=== PATIENT | male | born 1985 | race Caucasian/White ===

== ENCOUNTER 2018-04-02 16:09 | Emergency (ER) | payer BC ==
[2018-04-02] MEDS ORDERED: Lactated Ringers 1,000 ML IV ONE (16:26)
--- NOTE | 2018-04-02 16:44 | EDM.PDOC ---
ED HPI GENERAL MEDICAL PROBLEM - General Chief Complaint: Lower Extremity Injury/Pain Stated Complaint: Left leg spasms Time Seen by Provider: 04/02/18 16:37 Source of Information: Reports: Patient History Limitations: Reports: No Limitations - History of Present Illness INITIAL COMMENTS - FREE TEXT/NARRATIVE: Salty is a 32 year old male who presents to the ED with c/o right hip and leg pain. He reports that he has had pain from 7 am until 3:30 pm today. He initially described pain to nursing staff as a constant muscle spasm. However upon further discussion, pain originates from the hip and goes down to his knee at times. Reports the pain starts in his right hip and radiates down to his knee. He reports he was at work and had to leave work early due to the pain. He reports he has not tried anything for the pain. Has never had this type of pain. Denies any injury. Is ambulating without difficulty. Onset: Today Onset Date: 04/02/18 Onset Time: 07:30 Duration: Intermittent Location: Reports: Lower Extremity, Left Quality: Reports: Ache, Sharp Severity: Moderate Associated Symptoms: Reports: No Other Symptoms Left Upper Leg Pain Score (Numeric/FACES): 5 - Related Data Allergies Allergy/AdvReac Type Severity Reaction Status Date / Time No Known Allergies Allergy Verified 04/02/18 16:14 Home Meds: Home Meds Lisinopril/Hydrochlorothiazide [Lisinopril-Hctz 20-25 mg Tab] 1 tab PO DAILY 05/20 [History] Past Medical History Cardiovascular History: Reports: Hypertension - Past Surgical History Other Endocrine Surgeries/Procedures: pt states he is diabetic but is not on medications for it Social & Family History - Family History Family Medical History: Noncontributory - Tobacco Use Smoking Status *Q: Never Smoker - Caffeine Use Caffeine Use: Reports: None - Recreational Drug Use Recreational Drug Use: No Review of Systems - Review of Systems Review Of Systems: ROS reveals no pertinent complaints other than HPI. ED EXAM, GENERAL - Physical Exam Exam: See Below Exam Limited By: No Limitations General Appearance: Alert, WD/WN, No Apparent Distress Peripheral Pulses: 2+: Posterior Tibial (L), Dorsalis Pedis (L) Extremities: Normal Inspection, Normal Range of Motion, No Pedal Edema, Normal Capillary Refill, Leg Pain (left), Other (tenerness over left greater trochanter ). No: Joint Swelling, Limited Range of Motion, Increased Warmth, Redness Neurological: Alert, Oriented, CN II-XII Intact, Normal Cognition, Normal Gait, Normal Reflexes, No Motor/Sensory Deficits Psychiatric: Normal Affect, Normal Mood Course - Vital Signs Last Recorded V/S: Last Vital Signs Temp 99.1 F 04/02/18 16:09 Pulse 87 04/02/18 16:09 Resp 20 04/02/18 16:09 BP 141/85 H 04/02/18 16:09 Pulse Ox 100 04/02/18 16:09 - Orders/Labs/Meds Labs: Laboratory Tests 04/02/18 04/02/18 Range/Units 16:23 16:23 WBC 6.5 (5.0-10.0) 10^3/uL RBC 5.32 (4.50-6.00) 10^6/uL Hgb 15.6 (14.0-18.0) g/dL Hct 43.4 (40.0-54.0) % MCV 81.6 L (82.0-94.0) fL MCH 29.3 (27.0-32.0) pg MCHC 35.9 (33.0-38.0) g/dL RDW Coeff of Shahana 12.5 (11.0-15.0) % Plt Count 257 (150-400) 10^3/uL Neut % (Auto) 52.1 (35-85) % Lymph % (Auto) 36.9 (10-55) % Kenedy % (Auto) 9.0 (0-16) % Eos % (Auto) 1.7 (0-5) % Baso % (Auto) 0.3 (0-3) % Neut # (Auto) 3.37 (1.80-7.00) 10^3/uL Lymph # (Auto) 2.39 (1.00-4.80) 10^3/uL Kenedy # (Auto) 0.58 (0.00-0.80) 10^3/uL Eos # (Auto) 0.11 (0.00-0.45) 10^3/uL Baso # (Auto) 0.02 10^3/uL ESR 4 (0-15) mm/hr Sodium 140 (136-145) mEq/L Potassium 3.8 (3.5-5.0) mEq/L Chloride 101 (98-106) mEq/L Carbon Dioxide 26 (21-32) mmol/L BUN 25 H (7-18) mg/dL Creatinine 1.3 (0.7-1.3) mg/dL Est Cr Clr Drug Dosing 85.01 mL/min Estimated GFR (MDRD) > 60 (>=60) mL/min Glucose 99 (75-99) mg/dL Calcium 9.4 (8.4-10.1) mg/dL Magnesium 2.0 (1.8-2.4) mg/dL Total Bilirubin 0.6 (0.0-1.0) mg/dL AST 21 (15-37) U/L ALT 48 (12-78) U/L Alkaline Phosphatase 64 (46-116) U/L Creatine Kinase 185 (35-232) U/L C-Reactive Protein 0.3 (0.2-0.8) mg/dL Total Protein 8.4 H (6.4-8.2) g/dL Albumin 4.7 (3.4-5.0) g/dL TSH, Ultra Sensitive 1.88 (0.36-5.60) uIU/mL Meds: Medications Discontinued Medications Generic Name Dose Route Start Last Admin Trade Name Freq PRN Reason Stop Dose Admin Lactated Ringer's 1,000 mls @ 999 mls/hr 04/02/18 16:26 Ringers, Lactated IV 04/02/18 17:26 .BOLUS ONE Ketorolac Tromethamine 30 mg 04/02/18 16:53 04/02/18 16:56 Toradol IM 04/02/18 16:54 30 mg ONETIME ONE Administration - Re-Assessments/Exams Free Text/Narrative Re-Assessment/Exam: 04/02/18 17:04 Labs were ordered and collected prior to my exam. After further discussion with patient, issues seem to be more musculoskeletal related rather than muscle cramping. Given exam findings I do not feel there is indication for imaging at this time. Discussed lab findings with patient. Patient given Toradol. Reports improvement in pain. Departure - Departure Time of Disposition: 17:04 Disposition: Home, Self-Care 01 Condition: Good Clinical Impression: Bursitis of hip Qualifiers: Hip bursitis location: unspecified Laterality: left Qualified Code(s): M70.72 - Other bursitis of hip, left hip - Discharge Information *PRESCRIPTION DRUG MONITORING PROGRAM REVIEWED*: Not Applicable *COPY OF PRESCRIPTION DRUG MONITORING REPORT IN PATIENT BUSTER: Not Applicable Instructions: Hip Bursitis, [id number] Referrals: Ben Plummer MD [Primary Care Provider] - Forms: ED Department Discharge Additional Instructions: 1) Alternate Tylenol and ibuprofen as needed for pain 2) Activity as tolerated 3) Ice or heat to affected area as needed for comfort 4) Avoid repetitive movements of left hip 5) Try stretching left hip 6) Follow up in clinic with PCP if symptoms worsen or do not improve. May need referral to physical therapy if no improvement.
[2018-04-02] MEDS ORDERED: Ketorolac 30 MG/ML SDV IM ONE (16:53)
[2018-04-02 17:02] LABS: CHLORIDE,CL 101 mEq/L (98-106); SODIUM,NA 140 mEq/L (136-145)
== END 2018-04-02 17:13 | disposition home or self-care (01) ==
LOC: CC.ED 16:09
DX: M70.72 Other bursitis of hip, left hip (principal)
CPT/HCPCS: 36415; 80053; 82550; 83735; 84443; 85025; 85651; 86140; 96372; 99283; J1885

== ENCOUNTER 2019-06-02 18:19 | Emergency (ER) | payer BC ==
[~2019-06-02 18:19] MED LIST: Diphtheria,Pertussis(Acell),Tetanus Vaccine 0.5 ML Syringe ONE; Lidocaine 1% 20 ML MDV ONE
[2019-06-02] MEDS ORDERED: Cephalexin 500 MG Cap PO ONE ×2 (18:20→18:40)
[2019-06-02] MEDS ORDERED: Acetaminophen/HYDROcodone 325-5 MG Tab PO ONE (18:20)
[2019-06-02] MEDS ORDERED: Lidocaine 1% 30 ML SDV INJECT ONE (18:37)
[2019-06-02] MEDS ORDERED: Lidocaine 1% 20 ML MDV INJECT ONE (18:41)
--- NOTE | 2019-06-02 18:46 | EDM.PDOC ---
ED HPI GENERAL MEDICAL PROBLEM - General Chief Complaint: Skin Complaint Stated Complaint: hook in finger Time Seen by Provider: 06/02/19 18:25 Source of Information: Reports: Patient History Limitations: Reports: No Limitations - History of Present Illness INITIAL COMMENTS - FREE TEXT/NARRATIVE: Patient to the emergency department where he had a 3 pronged fish hook stuck in the left hand second digit at the PIP aspect area. The patient's tetanus shot is 5 or 6 years post. The patient denies any numbness or tingling denies any other symptoms this was a clean hook. No other symptoms Onset: Today Duration: Hour(s): Location: Reports: Upper Extremity, Left Quality: Reports: Ache Severity: Mild Improves with: Reports: None Worsens with: Reports: Movement Associated Symptoms: Reports: No Other Symptoms. Denies: Nausea/Vomiting Treatments COST ENGINEER: Reports: Other (see below) (none) Left Hand Pain Score (Numeric/FACES): 4 - Related Data Allergies Allergy/AdvReac Type Severity Reaction Status Date / Time No Known Allergies Allergy Verified 06/02/19 18:20 Home Meds: Home Meds Lisinopril/Hydrochlorothiazide [Lisinopril-Hctz 20-25 mg Tab] 1 tab PO DAILY 05/20 [History] cephALEXin [Keflex] 500 mg PO Q8H 7 Days #21 cap 06/02/19 [Rx] Past Medical History Cardiovascular History: Reports: Hypertension Endocrine/Metabolic History: Reports: Diabetes, Type II - Past Surgical History Other Endocrine Surgeries/Procedures: pt states he is diabetic but is not on medications for it Social & Family History - Family History Family Medical History: Noncontributory - Tobacco Use Smoking Status *Q: Never Smoker - Caffeine Use Caffeine Use: Reports: None - Recreational Drug Use Recreational Drug Use: No ED ROS GENERAL - Review of Systems Review Of Systems: See Below Constitutional: Reports: No Symptoms HEENT: Reports: No Symptoms Respiratory: Reports: No Symptoms Cardiovascular: Reports: No Symptoms Endocrine: Reports: No Symptoms GI/Abdominal: Reports: No Symptoms : Reports: No Symptoms Musculoskeletal: Reports: No Symptoms. Denies: Hand Pain, Joint Pain Skin: Reports: Wound Neurological: Reports: No Symptoms. Denies: Numbness, Tingling, Weakness ED EXAM, SKIN/RASH Exam: See Below Exam Limited By: No Limitations General Appearance: Alert, WD/WN, No Apparent Distress Head: Atraumatic, Normocephalic Neck: Normal Inspection, Supple, Non-Tender, Full Range of Motion Respiratory/Chest: No Respiratory Distress, Lungs Clear, Normal Breath Sounds Cardiovascular: Normal Peripheral Pulses, Regular Rate, Rhythm, No Murmur Peripheral Pulses: 2+: Radial (L), Radial (R) Back Exam: Normal Inspection, Full Range of Motion Extremities: Normal Inspection, Normal Range of Motion, Normal Capillary Refill Neurological: Alert, Oriented, Normal Cognition, Normal Gait, No Motor/Sensory Deficits Skin: Warm, Dry, Normal Color, Wound/Incision (As above). No: Intact Location, Skin: Upper Extremity, Left ED SKIN PROCEDURES - Foreign Body Removal Indication:: Langley to the left hand second digit Consent Obtained:: Patient Performing Doctor:: Morris Pires Jr Foreign Body Other Location Comment:: Left hand PIP aspect of the second digit Anesthesia Type: Local Anesthesia Other:: 1% lidocaine, 3 mL injected Complications:: No Comments:: The area was prepped in a normal fashion and then injected with 3 mL 1% lidocaine following this an appropriate time to numb up the area using hemostats the hook was pulled backwards and out without any problems. The wound was then cleaned and irrigated. The patient has normal range of motion before and after the procedure as well as normal capillary refill. Bleeding is controlled, patient tolerated procedure well Course - Vital Signs Text/Narrative:: The patient was evaluated in the emergency department the fishhook was removed from the left hand second digit as described above. After the wound was cleaned and Neosporin dressing was applied. The patient was given Keflex 1 g p.o. The patient be discharged with Keflex 500 mg 3 times a day for 7 days the patient will have this rechecked this coming week and return to the emergency department sooner if worsening problems Last Recorded V/S: Last Vital Signs Temp 36.9 C 06/02/19 18:20 Pulse 76 06/02/19 18:20 Resp 16 06/02/19 18:20 BP 148/100 H 06/02/19 18:20 Pulse Ox 99 06/02/19 18:20 - Orders/Labs/Meds Meds: Medications Discontinued Medications Generic Name Dose Route Start Last Admin Trade Name Freq PRN Reason Stop Dose Admin Diphtheria/Tetanus/Acell Pertussis Confirm 06/02/19 18:15 Adacel Administered 06/02/19 18:16 Dose 0.5 ml .ROUTE .STK-MED ONE Lidocaine HCl Confirm 06/02/19 18:14 Xylocaine 1% Administered 06/02/19 18:15 Dose 20 ml .ROUTE .STK-MED ONE Lidocaine HCl 10 ml 06/02/19 18:37 Xylocaine-Mpf 1% INJECT 06/02/19 18:38 ONETIME ONE Departure - Departure Time of Disposition: 18:47 Disposition: Home, Self-Care 01 Condition: Good Clinical Impression: Foreign body of left index finger - Discharge Information *PRESCRIPTION DRUG MONITORING PROGRAM REVIEWED*: Not Applicable *COPY OF PRESCRIPTION DRUG MONITORING REPORT IN PATIENT BUSTER: Not Applicable Prescriptions: cephALEXin [Keflex] 500 mg PO Q8H 7 Days #21 cap Instructions: Hand or Foot Foreign Body, Adult, Wound Care, Adult Referrals: Ben Plummer MD [Primary Care Provider] - Additional Instructions: Keep wound clean and dry Apply thin coating Neosporin 3 times a day Follow-up with your family doctor this coming week for further evaluation Return to the emergency department sooner if worse or any problems Sepsis Event Note - Evaluation Sepsis Screening Result: No Definite Risk - Focused Exam Vital Signs: Vital Signs Temp Pulse Resp BP Pulse Ox 06/02/19 18:20 36.9 C 76 16 148/100 H 99 Date Exam was Performed: 06/02/19 Time Exam was Performed: 18:40 - Problem List & Annotations (1) Foreign body of left index finger SNOMED Code(s): 485460596 Code(s): S60.451A - SUPERFICIAL FOREIGN BODY OF LEFT INDEX FINGER, INIT ENCNTR Status: Acute Priority: Medium Current Visit: Yes - Problem List Review Problem List Initiated/Reviewed/Updated: Yes - Assessment/Plan Plan: As above
[2019-06-02] MEDS ORDERED: Take Home: Cephalexin 500 MG Cap, 4 Cap Pack PO ONE (18:50)
[2019-06-02] MEDS ORDERED: Take Home: Acetaminophen/HYDROcodone 325-5 MG, 2 Tab Pack PO ONE (18:50)
== END 2019-06-02 19:02 | disposition home or self-care (01) ==
LOC: CC.ED 18:19
DX: S60.451A Superficial foreign body of left index finger, initial encounter (principal); I10 Essential (primary) hypertension; E11.9 Type 2 diabetes mellitus without complications; Z79.899 Other long term (current) drug therapy
CPT/HCPCS: 64450; 90715; 99283; A9270; J2001

== ENCOUNTER 2021-07-10 17:47 | Emergency (ER) | payer BC ==
[2021-07-10] MEDS: Famotidine 20 MG/2 ML SDV IVPUSH ONE (18:18)
[2021-07-10] MEDS: methylPREDNISolone Sodium Succinate 125 MG/2 ML SDV IVPUSH ONE (18:19)
[2021-07-10] MEDS: diphenhydrAMINE 50 MG/ML SDV IVPUSH ONE (18:21)
[2021-07-10] MEDS: cloNIDine 0.1 MG Tab PO ONE (18:53)
[2021-07-11] MEDS ORDERED: cloNIDine 0.1 MG Tab PO ONE (18:48)
== END 2021-07-10 19:45 | disposition home or self-care (01) ==
LOC: CC.ED 17:47
DX: T78.3XXA Angioneurotic edema, initial encounter (principal); I10 Essential (primary) hypertension; E11.9 Type 2 diabetes mellitus without complications; Z79.899 Other long term (current) drug therapy
CPT/HCPCS: 96374; 96375; 99284; 99284-25; A9270-GY; J1200; J2930; J3490